=== PATIENT | male | born 1995 | race African-American/Black ===

== ENCOUNTER 2025-07-10 20:50 | Inpatient (IN) | payer OTHER ==
[2025-07-10] MEDS ORDERED: levETIRAcetam 500 MG (5 mL) VIAL ONE (21:56)
[2025-07-10 22:09] LABS: #Basophils 0.04 10x3/uL (0.0-0.2); #Eosinophils 0.07 10x3/uL (0.0-0.7); #Monocytes 0.84 10x3/uL (0.11-0.59); #Neutrophils 7.21 10x3/uL (1.40-6.50); %Basophils 0.4 % (0.0-1.0); %Eosinophils 0.7 % (0.0-10.0); %Lymphocytes 16.0 % (21.0-51.0); %Monocytes 8.5 % (0.0-10.0); %Neutrophils 73.3 % (42.0-75.0); Hematocrit 44.3 % (42.0-52.0); Hemoglobin 14.2 g/dL (14.0-18.0); Mean Corpuscular Hemoglobin 26.5 pg (27.0-31.0); Mean Corpuscular Volume 82.8 fL (78.0-98.0); Platelet Count 384 10x3/uL (130-400); Red Blood Cell (RBC) Count 5.35 mill/uL (4.70-6.10); White Blood Cell (WBC) Count 9.85 10x3/uL (4.8-10.8)
[2025-07-10 22:37] LABS: ALT (SGPT) 46 U/L (Less than 45); AST (SGOT) 72 U/L (11-34); Albumin 5.7 g/dL (3.1-4.5); Alkaline Phosphatase 71 U/L (40-110); Anion Gap 25 mmol/L (10-20); BUN (Urea Nitrogen) 55 mg/dL (8.9-20.6); Bilirubin, Total 0.6 mg/dL (0.3-1.2); CK (CPK) 2107 U/L (30-200); Calc. Creatinine Clearance 0 mL/min (70-130); Calcium 9.2 mg/dL (7.8-10.44); Carbon Dioxide 20 mmol/L (22-29); Chloride 93 mmol/L (98-107); Globulin 4.4 g/dL (2.4-3.5); Glucose 102 mg/dL (70-105); Potassium 4.1 mmol/L (3.5-5.1); Sodium 134 mmol/L (136-145)
[2025-07-10 22:38] LABS: Acetaminophen Less than 10 mcg/mL (Less than 10); Salicylate Less than 8.0 mg/dL (Less than 8.0)
[2025-07-11] MEDS ORDERED: Ondansetron PF 4 MG/2 ML Vial IVP PRN (02:14)
[2025-07-11 03:48] LABS: #Basophils 0.04 10x3/uL (0.0-0.2); #Eosinophils 0.18 10x3/uL (0.0-0.7); #Monocytes 0.99 10x3/uL (0.11-0.59); #Neutrophils 5.96 10x3/uL (1.40-6.50); %Basophils 0.4 % (0.0-1.0); %Eosinophils 2.0 % (0.0-10.0); %Lymphocytes 20.2 % (21.0-51.0); %Monocytes 10.9 % (0.0-10.0); %Neutrophils 65.7 % (42.0-75.0); Hematocrit 38.9 % (42.0-52.0); Hemoglobin 12.9 g/dL (14.0-18.0); Mean Corpuscular Hemoglobin 27.2 pg (27.0-31.0); Mean Corpuscular Volume 82.1 fL (78.0-98.0); Platelet Count 311 10x3/uL (130-400); Red Blood Cell (RBC) Count 4.74 mill/uL (4.70-6.10); White Blood Cell (WBC) Count 9.07 10x3/uL (4.8-10.8)
[2025-07-11 04:44] LABS: Anion Gap 20 mmol/L (10-20); BUN (Urea Nitrogen) 50 mg/dL (8.9-20.6); CK (CPK) 1575 U/L (30-200); Calc. Creatinine Clearance 0 mL/min (70-130); Calcium 7.5 mg/dL (7.8-10.44); Carbon Dioxide 17 mmol/L (22-29); Chloride 103 mmol/L (98-107); Glucose 94 mg/dL (70-105); Potassium 3.8 mmol/L (3.5-5.1); Sodium 136 mmol/L (136-145)
[2025-07-11 07:47] VITALS: BMI 29.2
[2025-07-11] MEDS: Enoxaparin 30 MG (0.3 mL) SYRINGE SC SCH (09:49)
[2025-07-11] MEDS: levETIRAcetam 500 MG TAB PO SCH ×2 (09:49→20:46)
[2025-07-11] MEDS: Acetaminophen 325 MG TAB PO PRN (12:48)
[2025-07-11 16:46] LABS: Cocaine Metabolite Screen Negative (Negative); THC/Cannabinoid Screen PRELIM POSITIVE (Negative); Tricyclic Screen Negative (Negative)
[2025-07-12 09:15] LABS: #Basophils 0.03 10x3/uL (0.0-0.2); #Eosinophils 0.29 10x3/uL (0.0-0.7); #Monocytes 0.59 10x3/uL (0.11-0.59); #Neutrophils 2.38 10x3/uL (1.40-6.50); %Basophils 0.6 % (0.0-1.0); %Eosinophils 6.0 % (0.0-10.0); %Lymphocytes 31.2 % (21.0-51.0); %Monocytes 12.1 % (0.0-10.0); %Neutrophils 48.9 % (42.0-75.0); Hematocrit 37.5 % (42.0-52.0); Hemoglobin 11.8 g/dL (14.0-18.0); Mean Corpuscular Hemoglobin 26.9 pg (27.0-31.0); Mean Corpuscular Volume 85.6 fL (78.0-98.0); Platelet Count 274 10x3/uL (130-400); Red Blood Cell (RBC) Count 4.38 mill/uL (4.70-6.10); White Blood Cell (WBC) Count 4.87 10x3/uL (4.8-10.8)
[2025-07-12 10:19] LABS: ALT (SGPT) 23 U/L (Less than 45); AST (SGOT) 25 U/L (11-34); Albumin 3.7 g/dL (3.1-4.5); Alkaline Phosphatase 51 U/L (40-110); Anion Gap 11 mmol/L (10-20); BUN (Urea Nitrogen) 27 mg/dL (8.9-20.6); Bilirubin, Total 0.5 mg/dL (0.3-1.2); CK (CPK) 667 U/L (30-200); Calc. Creatinine Clearance 138 mL/min (70-130); Calcium 7.8 mg/dL (7.8-10.44); Carbon Dioxide 19 mmol/L (22-29); Chloride 110 mmol/L (98-107); Globulin 2.7 g/dL (2.4-3.5); Glucose 85 mg/dL (70-105); Magnesium 2.4 mg/dL (1.6-2.6); Potassium 4.4 mmol/L (3.5-5.1); Sodium 136 mmol/L (136-145)
[2025-07-12] MEDS: Methocarbamol 500 MG TAB PO SCH ×2 (14:19)
[2025-07-12] MEDS: diphenhydrAMINE 25 MG CAP PO PRN (14:19)
[2025-07-13 04:51] LABS: #Basophils 0.03 10x3/uL (0.0-0.2); #Eosinophils 0.34 10x3/uL (0.0-0.7); #Monocytes 0.45 10x3/uL (0.11-0.59); #Neutrophils 1.72 10x3/uL (1.40-6.50); %Basophils 0.7 % (0.0-1.0); %Eosinophils 8.2 % (0.0-10.0); %Lymphocytes 38.2 % (21.0-51.0); %Monocytes 10.9 % (0.0-10.0); %Neutrophils 41.5 % (42.0-75.0); Hematocrit 38.5 % (42.0-52.0); Hemoglobin 11.8 g/dL (14.0-18.0); Mean Corpuscular Hemoglobin 26.7 pg (27.0-31.0); Mean Corpuscular Volume 87.1 fL (78.0-98.0); Platelet Count 227 10x3/uL (130-400); Red Blood Cell (RBC) Count 4.42 mill/uL (4.70-6.10); White Blood Cell (WBC) Count 4.14 10x3/uL (4.8-10.8)
[2025-07-13 05:06] LABS: ALT (SGPT) 21 U/L (Less than 45); AST (SGOT) 28 U/L (11-34); Albumin 3.6 g/dL (3.1-4.5); Alkaline Phosphatase 51 U/L (40-110); Anion Gap 12 mmol/L (10-20); BUN (Urea Nitrogen) 20 mg/dL (8.9-20.6); Bilirubin, Total 0.4 mg/dL (0.3-1.2); CK (CPK) 397 U/L (30-200); Calc. Creatinine Clearance 157 mL/min (70-130); Calcium 8.1 mg/dL (7.8-10.44); Carbon Dioxide 19 mmol/L (22-29); Chloride 108 mmol/L (98-107); Globulin 2.6 g/dL (2.4-3.5); Glucose 77 mg/dL (70-105); Magnesium 2.1 mg/dL (1.6-2.6); Potassium 5.9 mmol/L (3.5-5.1); Sodium 133 mmol/L (136-145)
[2025-07-13 08:11] LABS: Anion Gap 9 mmol/L (10-20); BUN (Urea Nitrogen) 19 mg/dL (8.9-20.6); Calc. Creatinine Clearance 160 mL/min (70-130); Calcium 8.5 mg/dL (7.8-10.44); Carbon Dioxide 21 mmol/L (22-29); Chloride 108 mmol/L (98-107); Glucose 79 mg/dL (70-105); Potassium 5.2 mmol/L (3.5-5.1); Sodium 133 mmol/L (136-145)
[2025-07-13] MEDS: Enoxaparin 40 MG (0.4 mL) SYRINGE SC SCH (09:02)
[2025-07-14] MEDS ORDERED: diphenhydrAMINE 25 MG CAP PO SCH (00:45)
[2025-07-14 05:09] LABS: #Basophils 0.03 10x3/uL (0.0-0.2); #Eosinophils 0.41 10x3/uL (0.0-0.7); #Monocytes 0.65 10x3/uL (0.11-0.59); #Neutrophils 2.67 10x3/uL (1.40-6.50); %Basophils 0.6 % (0.0-1.0); %Eosinophils 7.6 % (0.0-10.0); %Lymphocytes 29.3 % (21.0-51.0); %Monocytes 12.1 % (0.0-10.0); %Neutrophils 49.5 % (42.0-75.0); Hematocrit 38.6 % (42.0-52.0); Hemoglobin 12.4 g/dL (14.0-18.0); Mean Corpuscular Hemoglobin 26.9 pg (27.0-31.0); Mean Corpuscular Volume 83.7 fL (78.0-98.0); Platelet Count 285 10x3/uL (130-400); Red Blood Cell (RBC) Count 4.61 mill/uL (4.70-6.10); White Blood Cell (WBC) Count 5.39 10x3/uL (4.8-10.8)
[2025-07-14 05:36] LABS: ALT (SGPT) 16 U/L (Less than 45); AST (SGOT) 22 U/L (11-34); Albumin 3.7 g/dL (3.1-4.5); Alkaline Phosphatase 70 U/L (40-110); Anion Gap 14 mmol/L (10-20); BUN (Urea Nitrogen) 21 mg/dL (8.9-20.6); Bilirubin, Total 0.2 mg/dL (0.3-1.2); CK (CPK) 190 U/L (30-200); Calc. Creatinine Clearance 148 mL/min (70-130); Calcium 9.0 mg/dL (7.8-10.44); Carbon Dioxide 23 mmol/L (22-29); Chloride 106 mmol/L (98-107); Globulin 2.6 g/dL (2.4-3.5); Glucose 83 mg/dL (70-105); Magnesium 1.7 mg/dL (1.6-2.6); Potassium 5.0 mmol/L (3.5-5.1); Sodium 138 mmol/L (136-145)
[2025-07-15 05:39] LABS: #Basophils 0.04 10x3/uL (0.0-0.2); #Eosinophils 0.57 10x3/uL (0.0-0.7); #Monocytes 0.68 10x3/uL (0.11-0.59); #Neutrophils 3.16 10x3/uL (1.40-6.50); %Basophils 0.7 % (0.0-1.0); %Eosinophils 9.5 % (0.0-10.0); %Lymphocytes 24.8 % (21.0-51.0); %Monocytes 11.4 % (0.0-10.0); %Neutrophils 52.9 % (42.0-75.0); Hematocrit 42.4 % (42.0-52.0); Hemoglobin 13.5 g/dL (14.0-18.0); Mean Corpuscular Hemoglobin 26.6 pg (27.0-31.0); Mean Corpuscular Volume 83.6 fL (78.0-98.0); Platelet Count 324 10x3/uL (130-400); Red Blood Cell (RBC) Count 5.07 mill/uL (4.70-6.10); White Blood Cell (WBC) Count 5.97 10x3/uL (4.8-10.8)
[2025-07-16 04:43] LABS: Anion Gap 15 mmol/L (10-20); BUN (Urea Nitrogen) 24 mg/dL (8.9-20.6); Calc. Creatinine Clearance 135 mL/min (70-130); Calcium 9.5 mg/dL (7.8-10.44); Carbon Dioxide 21 mmol/L (22-29); Chloride 104 mmol/L (98-107); Glucose 60 mg/dL (70-105); Potassium 4.2 mmol/L (3.5-5.1); Sodium 136 mmol/L (136-145)
[2025-07-16 11:06] VITALS: BP 126/74; TEMP 98.3
== END 2025-07-16 11:07 | disposition short-term general hospital (02) | DRG 100 ==
LOC: ERS 20:50 → ERHOLD 23:40 → 2NO 07-11 07:27
PROVIDERS: ADMIT Internal Medicine; ATTEND Student in an Organized Health Care Education/Training Program
DX: G40.909 Epilepsy, unspecified, not intractable, without status epilepticus (principal); G92.9 Unspecified toxic encephalopathy; N17.9 Acute kidney failure, unspecified; M62.82 Rhabdomyolysis; R45.851 Suicidal ideations; Z88.8 Allergy status to other drugs, medicaments and biological substances; I10 Essential (primary) hypertension; F32.A Depression, unspecified; E87.5 Hyperkalemia; F19.10 Other psychoactive substance abuse, uncomplicated; Z79.899 Other long term (current) drug therapy
CPT/HCPCS: 36415; 70450; 80048; 80053; 80177; 80306; 80307; 82550; 83735; 84443; 85025; 93005; 95813; 96361; 96374; J1650; J1953; J7030